=== PATIENT | female | born 1970 | race Caucasian/White ===

== ENCOUNTER 2017-06-08 14:31 | Emergency (ER) | payer SELFPAY ==
[~2017-06-08] VITALS: Ht 157.5 cm; Wt 60.0 kg
[2017-06-08] MEDS ORDERED: ONDANSETRON HCL 4MG/2ML VIAL IV STA (17:28)
[2017-06-08] MEDS ORDERED: SODIUM CHLORIDE 0.9% 1,000 ML IV ONE (17:28)
[2017-06-08] MEDS ORDERED: MECLIZINE 25MG TABLET PO ONE (17:30)
[2017-06-08 20:19] VITALS: BP 158/81
== END 2017-06-08 20:20 | disposition home or self-care (01) ==
LOC: ER 14:58
DX: R42 Dizziness and giddiness (principal); R05 Cough; H92.03 Otalgia, bilateral
CPT/HCPCS: 81025; 82962; 96361; 96374; 99284; J2405; Z7610; J7030; J8597